=== PATIENT | male | born 1980 | race African-American/Black ===

== ENCOUNTER 2018-03-28 17:51 | Emergency (ER) | payer OTHER ==
[2018-03-28] MEDS: LIDOCAINE 1% (MDV) 10 ML INJ INJ (21:08)
== END 2018-03-28 21:24 | disposition home or self-care (01) ==
LOC: FTE 17:51
DX: S51.811A Laceration without foreign body of right forearm, initial encounter (principal); F17.210 Nicotine dependence, cigarettes, uncomplicated; W26.0XXA Contact with knife, initial encounter; Y92.9 Unspecified place or not applicable
CPT/HCPCS: 12001; 99282-25

== ENCOUNTER 2018-07-31 08:55 | Emergency (ER) | payer OTHER | END 2018-07-31 10:30 | disposition home or self-care (01) | LOC: FTE 08:55 | DX: S52.121A Displaced fracture of head of right radius, initial encounter for closed fracture (principal); F17.210 Nicotine dependence, cigarettes, uncomplicated; V58.9XXA Unspecified occupant of pick-up truck or van injured in noncollision transport accident in traffic accident, initial encounter | CPT/HCPCS: 73080; 73080-RT; 99283-25 ==

== ENCOUNTER 2019-01-01 21:38 | Emergency (ER) | payer OTHER ==
[2019-01-02] MEDS: LIDOCAINE 2% (MDV) 20 ML INJ INJ (01:18)
[2019-01-02] MEDS: KETOROLAC 30 MG INJ IM (01:21)
[2019-01-02] MEDS: DIPHTH/TET/ACEL PERTUSS (ADULT) 0.5 ML VIAL IM* (01:35)
== END 2019-01-02 02:19 | disposition home or self-care (01) ==
LOC: FTE 21:38
DX: S61.217A Laceration without foreign body of left little finger without damage to nail, initial encounter (principal); F17.210 Nicotine dependence, cigarettes, uncomplicated; W26.8XXA Contact with other sharp object(s), not elsewhere classified, initial encounter; Y92.89 Other specified places as the place of occurrence of the external cause; Z23 Encounter for immunization
CPT/HCPCS: 12001; 90471; 90715; 96372; 99284-25